=== PATIENT | female | born 1995 | race Two or more races ===

== ENCOUNTER 2023-05-12 15:15 | Emergency (ER) | payer OTHER ==
[~2023-05-12] VITALS: Ht 165.1 cm; Wt 83.5 kg
[2023-05-12 17:03] LABS: HEMATOCRIT 40.1 % (36.0-45.00); HEMOGLOBIN 13.6 g/dL (12.0-15.00); MEAN CELL VOLUME 88.1 fL (80.00-100.00); MEAN CORPUSCULAR HEMOGLOBIN 29.9 pg (27.00-32.0); PLATELET COUNT 291 K/uL (150-450); RED BLOOD COUNT 4.55 M/uL (4.00-6.00); RED CELL DISTRIBUTION WIDTH 13.1 % (11.5-14.5)
[2023-05-12 17:39] LABS: INR 1.06; PARTIAL THROMBOPLASTIN TIME 28.9 SECONDS (22.0-34.0); PROTHROMBIN TIME 11.1 SECONDS (9.0-11.5)
[2023-05-12 17:47] LABS: CALCIUM 9.6 mg/dL (8.5-10.1); CREATININE SERUM 0.66 mg/dL (0.55-1.02); GFR 106.64; POTASSIUM 3.4 mEq/L (3.5-5.1)
== END 2023-05-12 20:45 | disposition home or self-care (01) ==
LOC: ER 15:15
PROVIDERS: Emergency Medicine
DX: O03.89 Complete or unspecified spontaneous abortion with other complications (principal); Z88.0 Allergy status to penicillin; Z88.6 Allergy status to analgesic agent

== ENCOUNTER 2023-05-14 09:06 | Day surgery (SDC) | payer OTHER ==
[~2023-05-14] VITALS: Ht 165.1 cm; Wt 83.5 kg
[2023-05-14 08:10] LABS: HEMATOCRIT 36.8 % (36.0-45.00); HEMOGLOBIN 12.5 g/dL (12.0-15.00); MEAN CELL VOLUME 86.9 fL (80.00-100.00); MEAN CORPUSCULAR HEMOGLOBIN 29.4 pg (27.00-32.0); MEAN CORPUSCULAR HGB CONC 33.8 g/dl (32.0-36.0); PLATELET COUNT 285 K/uL (150-450); RED BLOOD COUNT 4.24 M/uL (4.00-6.00); RED CELL DISTRIBUTION WIDTH 13.1 % (11.5-14.5)
[2023-05-14] MEDS ORDERED: MORGIDOX100 MG PO (10:58)
[2023-05-14] MEDS ORDERED: TRAM1TAB98 PO (10:59)
== END 2023-05-14 17:00 | disposition home or self-care (01) ==
LOC: O/R 09:06 → ER 09:06 → CIR.AMB 09:06 → SEC-K 09:06 → CIR.AMB 09:06 → SEC-K 09:31 → O/R 09:31 → CIR.AMB 17:00 → O/R 17:00
PROVIDERS: ATTEND General Practice
DX: O03.4 Incomplete spontaneous abortion without complication (principal); Z20.822 Contact with and (suspected) exposure to COVID-19; Z88.0 Allergy status to penicillin; Z88.6 Allergy status to analgesic agent